=== PATIENT | male | born 1990 | race Caucasian/White ===

== ENCOUNTER 2016-12-29 09:26 | Emergency (ER) | payer MEDICAID ==
[2016-12-29 09:35] VITALS: BP 113/71; PULSE 88; RESP 16; TEMP 97.7; O2SAT 95
[2016-12-29] MEDS ORDERED: NS 1,000 ML IV ONE (09:36)
--- NOTE | 2016-12-29 09:36 | EDPHY ---
H & P Stated Complaint: lower abd pain with "dark red" blood/ clots in stool x 3 months Time Seen by Provider: 12/29/16 09:35 - Personal History Current Tetanus/Diphtheria Vaccine: Unsure Current Tetanus Diphtheria and Acellular Pertussis (TDAP): Unsure - Medical/Surgical History Hx Asthma: No Hx Chronic Respiratory Disease: No Hx Diabetes: No Hx Cardiac Disease: No Hx Renal Disease: No Hx Cirrhosis: No Hx Alcoholism: No Hx HIV/AIDS: No Hx Splenectomy or Spleen Trauma: No Other PMH: healthy - Social History Smoking Status: Current every day smoker Constitutional: Initial Vital Signs Temperature (C) 36.5 C 12/29/16 09:31 Heart Rate 88 12/29/16 09:31 Respiratory Rate 16 12/29/16 09:31 Blood Pressure 113/71 12/29/16 09:31 O2 Sat (%) 95 12/29/16 09:31 O2 Delivery Mode Room Air Allergies/Adverse Reactions: No Known Allergies Allergy (Unverified 12/29/16 09:30) Home Medications: Medication Instructions Recorded NK [No Known Home Meds] 12/29/16 Medical Decision Making ED Course/Re-evaluation: CHIEF COMPLAINT: HISTORY OF PRESENT ILLNESS: must have 4 elements: Location, Quality, Severity , Duration, Timing, Context, Modifying Factors, Associated Signs and Symptoms REVIEW OF SYSTEMS: A 10 point review of systems was performed and is negative with the exception of the elements mentioned in the history of present illness. PHYSICAL EXAM: HR, BP, O2 Sat, RR. Temp noted General Appearance: Alert, well hydrated, appropriate, and non-toxic appearing. Head: Atraumatic without scalp tenderness or obvious injury Eyes: Pupils equal, round, reactive to light and accommodation, EOMI, no trauma , no injection. Ears: Clear bilaterally, no perforation, normal landmarks Nose: Atraumatic, no rhinorrhea, clear. Throat: There is no erythema or exudates, no lesions, normal tonsils, mucus membranes moist. Neck: Supple, 2+ carotid upstroke, nontender, no lymphadenopathy. Respiratory: No retractions, no distress, no wheezes, and no accessory muscle use. Lungs are clear to auscultation bilaterally. Cardiovascular: Regular rate and rhythm, no murmurs, rubs, or gallops. Bilateral carotid, radial, dorsalis pedis, and posterior tibial pulses intact. Good capillary refill all extremities. Gastrointestinal: Abdomen is soft, nontender, non-distended, no masses, no rebound, no guarding, no peritoneal signs. Musculoskeletal: Normal active ROM of all extremities, atraumatic. Neurological: Alert, appropriate, and interactive. The patient has normal DTRs and non-focal cranial nerves, motor, sensory, and cerebellar exam. Skin: No rashes, good turgor, no nodules on palpation. Past medical history: Past surgical history: Family history: Social history: DIAGNOSTICS/PROCEDURES/CRITICAL CARE TIME: DIFFERENTIAL DIAGNOSIS: MEDICAL DECISION MAKING: Departure - Departure Referrals: NONE *PRIMARY CARE P,. [Primary Care Provider] - As per Instructions
--- NOTE | 2016-12-29 09:57 | EDPHY ---
H & P Stated Complaint: lower abd pain with "dark red" blood/ clots in stool x 3 months Time Seen by Provider: 12/29/16 09:35 HPI/ROS: CHIEF COMPLAINT: Bloody stools HISTORY OF PRESENT ILLNESS: Patient complains of nearly 3 months of bloody stools. This started off as a hematochezia. It would happen intermittently but with most bowel movements. It was associated with concomitant diarrhea. Minimal discomfort. This has transitioned to a mixture of both dark, tarry stools, clots in the stool, and some bright red stools. This is mostly loose or diarrhea. No fever or chills. No nausea or vomiting. No back pain. No trauma or injury. No blood thinners. No history of bleeding disorders. No previous incidents of this prior to the preceding 3 months. Does have a history of a hemorrhoid that he feels was originally contributing but no longer feels that. No instrumentation of the rectum or anus. No previous workup for this. No other associated complaints or modifying factors. PREVIOUS ABDOMINAL SURGERIES/DIAGNOSES: None REVIEW OF SYSTEMS: Ten systems reviewed and are negative unless otherwise noted in the HPI EXAMINATION: General Appearance: Alert, no distress Head: normocephalic, atraumatic Eyes: Pupils equal and round, no conjunctival pallor or injection ENT, Mouth: Mucous membranes moist Neck: Normal inspection, supple, non-tender Respiratory: Lungs are clear to auscultation. No wheezing, rhonchi or crackles. Cardiovascular: Regular rate and rhythm. No murmur. Pulses intact distally. Gastrointestinal: Abdomen is soft and nontender. No tympany. No rigidity. No distention. No guarding. Non-acute abdomen. Rectal exam: Deferred Back: non-tender, no bony abnormalities Neurological: A&O, nonfocal, GCS 15. Skin: Warm and dry, no rash. No petechiae purpura. Extremities: Nontender, no pedal edema Psychiatric: Mood and affect normal DIFFERENTIAL DIAGNOSES: Including but not limited to inflammatory bowel, Crohn's, ulcerative colitis, upper GI bleed, lower GI bleed, hemorrhoids, fissure MDM: 9:54 a.m. Bloody diarrhea consistent both melena and hematochezia. He has minimal abdominal pain. His vital signs are within normal limits and his abdominal exam is benign. Laboratory studies are pending at this time. 10:30 a.m. Laboratory studies are all within normal limits. There is a mild elevation of the ESR. Coags normal. Abdominal exam is benign. He does note that he has a family history of Crohn's disease. I suspect this is inflammatory bowel. He remains resting comfortably in no acute distress. No abdominal pain at this time. He will be discharged home stable condition. He is referred to GI for further care. He is to return to ER for any worsening symptoms, lightheadedness , dizziness or syncope. He is comfortable with this plan and discharged home stable condition. ED Precautions: Worsening pain. Fever. Bloody stools. Bloody emesis. Constipation or diarrhea. SUPERVISION: Patient was evaluated in conjunction with the supervising physician. Please see their note for details. Source: Patient - Personal History Current Tetanus/Diphtheria Vaccine: Unsure Current Tetanus Diphtheria and Acellular Pertussis (TDAP): Unsure - Medical/Surgical History Hx Asthma: No Hx Chronic Respiratory Disease: No Hx Diabetes: No Hx Cardiac Disease: No Hx Renal Disease: No Hx Cirrhosis: No Hx Alcoholism: No Hx HIV/AIDS: No Hx Splenectomy or Spleen Trauma: No Other PMH: healthy - Social History Smoking Status: Current every day smoker Constitutional: Initial Vital Signs Temperature (C) 97.7 F 12/29/16 09:31 Heart Rate 88 12/29/16 09:31 Respiratory Rate 16 12/29/16 09:31 Blood Pressure 113/71 12/29/16 09:31 O2 Sat (%) 95 12/29/16 09:31 O2 Delivery Mode Room Air Allergies/Adverse Reactions: No Known Allergies Allergy (Unverified 12/29/16 09:30) Home Medications: Medication Instructions Recorded NK [No Known Home Meds] 12/29/16 Medical Decision Making - Data Points Laboratory Results: Laboratory Results 12/29/16 09:45 12/29/16 09:45 12/29/16 12/29/16 12/29/16 09:57 09:45 09:45 WBC 5.98 10^3/uL 10^3/uL (3.80-9.50) RBC 4.52 10^6/uL 10^6/uL (4.40-6.38) Hgb 14.4 g/dL g/dL (13.7-17.5) POC Hgb Hct 42.5 % % (40.0-51.0) POC Hct MCV 94.0 fL fL (81.5-99.8) MCH 31.9 pg pg (27.9-34.1) MCHC 33.9 g/dL g/dL (32.4-36.7) RDW 13.2 % % (11.5-15.2) Plt Count 264 10^3/uL 10^3/uL (150-400) MPV 9.8 fL fL (8.7-11.7) Neut % (Auto) 56.5 % % (39.3-74.2) Lymph % (Auto) 22.6 % % (15.0-45.0) [place] % (Auto) 15.7 % H % (4.5-13.0) Eos % (Auto) 4.7 % % (0.6-7.6) Baso % (Auto) 0.3 % % (0.3-1.7) Nucleat RBC Rel Count 0.0 % % (0.0-0.2) Absolute Neuts (auto) 3.38 10^3/uL 10^3/uL (1.70-6.50) Absolute Lymphs (auto) 1.35 10^3/uL 10^3/uL (1.00-3.00) Absolute Monos (auto) 0.94 10^3/uL H 10^3/uL (0.30-0.80) Absolute Eos (auto) 0.28 10^3/uL 10^3/uL (0.03-0.40) Absolute Basos (auto) 0.02 10^3/uL 10^3/uL (0.02-0.10) Absolute Nucleated RBC 0.00 10^3/uL 10^3/uL (0-0.01) Immature Gran % 0.2 % % (0.0-1.1) Immature Gran # 0.01 10^3/uL 10^3/uL (0.00-0.10) ESR 12 MM/HR MM/HR (0-15) PT 12.8 SEC SEC (12.0-15.0) INR 0.97 (0.83-1.16) APTT 26.9 SEC SEC (23.0-38.0) POC Sodium Sodium 141 mEq/L mEq/L (134-144) POC Potassium Potassium 4.3 mEq/L mEq/L (3.5-5.2) POC Chloride Chloride 104 mEq/L mEq/L (97-110) Carbon Dioxide 25 mEq/l mEq/l (22-31) Anion Gap 12 mEq/L mEq/L (8-16) POC BUN BUN 13 mg/dL mg/dL (7-23) Creatinine 0.9 mg/dL mg/dL (0.7-1.3) POC Creatinine Estimated GFR > 60 Glucose 103 mg/dL H mg/dL (70-100) POC Glucose Calcium 10.3 mg/dL mg/dL (8.5-10.4) Total Bilirubin 0.6 mg/dL mg/dL (0.1-1.4) Conjugated Bilirubin 0.5 mg/dL mg/dL (0.0-0.5) Unconjugated Bilirubin 0.1 mg/dL mg/dL (0.0-1.1) AST 26 IU/L IU/L (17-59) ALT 34 IU/L IU/L (21-72) Alkaline Phosphatase 90 IU/L IU/L (38-126) C-Reactive Protein 10.8 mg/L H mg/L (<10.0) Total Protein 7.2 g/dL g/dL (6.3-8.2) Albumin 4.0 g/dL g/dL (3.5-5.0) Lipase 355.0 IU/L H IU/L (23-300) 12/29/16 09:43 WBC RBC Hgb POC Hgb 15.0 gm/dL gm/dL (14.5-17.3) Hct POC Hct 44 % % (42.8-50.6) MCV MCH MCHC RDW Plt Count MPV Neut % (Auto) Lymph % (Auto) [place] % (Auto) Eos % (Auto) Baso % (Auto) Nucleat RBC Rel Count Absolute Neuts (auto) Absolute Lymphs (auto) Absolute Monos (auto) Absolute Eos (auto) Absolute Basos (auto) Absolute Nucleated RBC Immature Gran % Immature Gran # ESR PT INR APTT POC Sodium 142 mEq/L mEq/L (134-144) Sodium POC Potassium 4.0 mEq/L mEq/L (3.3-5.0) Potassium POC Chloride 102 mEq/L mEq/L (96-108) Chloride Carbon Dioxide Anion Gap POC BUN 13 mg/dL mg/dL (7-23) BUN Creatinine POC Creatinine 0.9 mg/dL mg/dL (0.8-1.5) Estimated GFR Glucose POC Glucose 108 mg/dL H mg/dL (70-100) Calcium Total Bilirubin Conjugated Bilirubin Unconjugated Bilirubin AST ALT Alkaline Phosphatase C-Reactive Protein Total Protein Albumin Lipase Medications Given: Discontinued Medications Sodium Chloride (Ns) 1,000 mls @ 0 mls/hr IV ONCE ONE PRN Reason: Wide Open Stop: 12/29/16 09:37 Last Admin: 12/29/16 09:46 Dose: 1,000 mls Point of Care Test Results: 12/29/16 09:43 POC Sodium 142 POC Potassium 4.0 POC Chloride 102 POC BUN 13 POC Creatinine 0.9 POC Glucose 108 H Departure - Departure Disposition: Home, Routine, Self-Care Clinical Impression: Hematochezia, Melena Condition: Good Instructions: Irritable Bowel Syndrome (ED), Crohn Disease (ED), Ulcerative Colitis (ED) Additional Instructions: Follow-up with GI specialist as discussed. Return to ER for worsening bleeding , lightheadedness, dizziness or syncope Referrals: NONE *PRIMARY CARE P,. [Primary Care Provider] - As per Instructions David Bradley MD [[facility] Primary Care Provider] - As per Instructions
[2016-12-29 10:00] LABS: % IMMATURE GRANULYOCYTES 0.2 % (0.0-1.1); ABSOLUTE IMMATURE GRANULOCYTES 0.01 10^3/uL (0.00-0.10); ADD DIFF? NO; ADD MORPH? NO; ADD SCAN? NO; ATYPICAL LYMPHOCYTE FLAG 40 (0-99); FRAGMENT RBC FLAG 0 (0-99); HEMATOCRIT 42.5 % (40.0-51.0); HEMOGLOBIN 14.4 g/dL (13.7-17.5); LEFT SHIFT FLG 10 (0-99); LIPEMIA HEMOLYSIS FLAG 90 (0-99); MEAN CELL HEMOGLOBIN 31.9 pg (27.9-34.1); MEAN CELL HEMOGLOBIN CONCENTR. 33.9 g/dL (32.4-36.7); MEAN PLATELET VOLUME 9.8 fL (8.7-11.7); PLATELET CLUMPS FLAG 10 (0-99); PLATELET COUNT 264 10^3/uL (150-400); RED BLOOD CELL COUNT 4.52 10^6/uL (4.40-6.38); RED CELL DISTRIBUTION WIDTH 13.2 % (11.5-15.2)
[2016-12-29 10:04] LABS: APTT 26.9 SEC (23.0-38.0); INR 0.97 (0.83-1.16); PROTIME(PATIENT) 12.8 SEC (12.0-15.0)
[2016-12-29 10:13] LABS: SEDIMENTATION RATE 12 MM/HR (0-15)
[2016-12-29 10:17] LABS: ALANINE AMINOTRANSFERASE 34 IU/L (21-72); ALKALINE PHOSPHATASE 90 IU/L (38-126); ANION GAP 12 mEq/L (8-16); ASPARTATE AMINOTRANSFERASE 26 IU/L (17-59); BILIRUBIN,TOTAL 0.6 mg/dL (0.1-1.4); BILIRUBIN-CONJUGATED 0.5 mg/dL (0.0-0.5); BILIRUBIN-UNCONJUGATED 0.1 mg/dL (0.0-1.1); C-REACTIVE PROTEIN 10.8 mg/L (<10.0); CALCIUM 10.3 mg/dL (8.5-10.4); CARBON DIOXIDE 25 mEq/l (22-31); CHLORIDE 104 mEq/L (97-110); CREATININE 0.9 mg/dL (0.7-1.3); GLOMERULAR FILTRATION RATE > 60; GLUCOSE 103 mg/dL (70-100); POTASSIUM 4.3 mEq/L (3.5-5.2); SODIUM 141 mEq/L (134-144); TOTAL PROTEIN 7.2 g/dL (6.3-8.2)
== END 2016-12-29 10:30 | disposition home or self-care (01) ==
DX: K92.1 Melena (principal); F17.200 Nicotine dependence, unspecified, uncomplicated
CPT/HCPCS: 82947-QW

== ENCOUNTER 2017-07-31 15:13 | Emergency (ER) | payer MEDICAID ==
[2017-07-31 15:18] VITALS: BP 113/69; PULSE 82; RESP 18; TEMP 97.7; O2SAT 96
[2017-07-31] MEDS ORDERED: TDAP ADULT 0.5 ML INJ (BOOSTRIX) IM ONE (15:51)
--- NOTE | 2017-07-31 16:07 | EDPHY ---
H & P Time Seen by Provider: 07/31/17 16:00 HPI/ROS: CHIEF COMPLAINT: Stepped on nail HISTORY OF PRESENT ILLNESS: 27-year-old immunocompetent male with out-of-date tetanus stepped on a nail while he was riding a shoe earlier today. Not through and through. Tender to palpation. Nail did not break off. No paresthesia. Occurred earlier today. PHYSICAL EXAM (Prior to examination, patient consented to physical exam, hands were washed and my usual and customary physical exam procedures followed) 1) GENERAL: Well-developed, well-nourished, alert and oriented. Appears to be in no acute distress. 2) HEAD: Normocephalic 3) HEENT: sclera anicteric 4) LUNGS: Breathing comfortably. 5) SKIN: right foot plantar aspect midfoot puncture wound not through and through. Not erythematous. No discharge. No crepitus. No signs of infection. No underlying osseous discomfort Smoking Status: Former smoker Constitutional: Initial Vital Signs Temperature (C) 36.5 C 07/31/17 15:15 Heart Rate 82 07/31/17 15:15 Respiratory Rate 18 07/31/17 15:15 Blood Pressure 113/69 07/31/17 15:15 O2 Sat (%) 96 07/31/17 15:15 O2 Delivery Mode Room Air Allergies/Adverse Reactions: No Known Allergies Allergy (Unverified 12/29/16 09:30) Home Medications: Medication Instructions Recorded Ciprofloxacin [Cipro] 500 mg PO BID #10 tab 07/31/17 MDM/Departure - [facility] ED Course/Re-evaluation: Patient will be started on fluoroquinolone for Pseudomonas prophylaxis as this object went through shoe. Tetanus has been updated. Wound has been cleansed. Usual and customary wound precautions and instructions provided. Care of patient under supervision of secondary supervising physician Dr Singh . - Depart Disposition: Home, Routine, Self-Care Clinical Impression: Puncture wound of foot Qualifiers: Encounter type: initial encounter Laterality: right Qualified Code(s): S91.331A - Puncture wound without foreign body, right foot, initial encounter Condition: Good Instructions: Puncture Wound (ED) Additional Instructions: Return to the ER if you develop redness, swelling, discharge, warmth to the wound, red streaks going up your leg, or any other symptoms that concern you. Stand Alone Forms: Work Comp Follow Up Prescriptions: Ciprofloxacin [Cipro] 500 mg PO BID #10 tab Referrals: Follow-up, with your work comp provider in 3 days [Other] - As per Instructions
== END 2017-07-31 16:22 | disposition home or self-care (01) ==
DX: S91.331A Puncture wound without foreign body, right foot, initial encounter (principal); Z23 Encounter for immunization; Z87.891 Personal history of nicotine dependence; W45.0XXA Nail entering through skin, initial encounter; Y99.8 Other external cause status; Y93.89 Activity, other specified